=== PATIENT | male | born 1935 | race Caucasian/White ===

== ENCOUNTER → 2016-10-18 | Outpatient (CLI) | payer OTHER ==
[~2016-10-18] MED LIST: ACET-1256 PO; CALC500C3; ULT50X PO
== END | disposition home or self-care (01) ==
LOC: C.CTS 10:31
PROVIDERS: ATTEND Orthopaedic Surgery
DX: Z01.818 Encounter for other preprocedural examination (principal); M75.102 Unspecified rotator cuff tear or rupture of left shoulder, not specified as traumatic

== ENCOUNTER 2016-11-24 08:17 | Inpatient (IN) | payer OTHER ==
--- NOTE | 2016-10-18 10:13 | PAT Medication Instructions ---
Service Date October 18, 2016. Current Home Medication List Acetaminophen (Tylenol), 1,000 MG PO UD PRN for Pain Calcium Carbonate (Tums), UD PRN for HEARTBURN Medication Instructions For Your Scheduled Surgery - Take the following medications the morning of surgery with a sip of water: Acetaminophen (Tylenol), 1,000 MG PO UD PRN for Pain (if needed) - Take the following medications as scheduled the night before surgery: Acetaminophen (Tylenol), 1,000 MG PO UD PRN for Pain (if needed) Calcium Carbonate (Tums), UD PRN for HEARTBURN (if needed) If you have any questions please call us at [phone] or [phone] ( [place]) or [phone]
[2016-10-18 11:05] LABS: BASO % 0.8 %; BASO ABS # 0.04 K/uL (0-0.2); COMPLETE YES; EOS % 2.3 %; HEMATOCRIT 46.2 % (42-52); IG% 0.2 %; LYMPH % 39.6 %; LYMPH ABS # 2.04 K/uL (1.2-3.4); MEAN CELL VOLUME 83.8 fL (80-100); MEAN CORPUSCULAR HEMOGLOBIN 28.5 pg (25-34); MEAN PLATELET VOLUME 8.9 fL (7.4-10.4); NEUT % 49.1 %; PLATELET COUNT 252 K/uL (130-400); RED BLOOD COUNT 5.51 M/uL (4.7-6.1); WHITE BLOOD COUNT 5.15 K/uL (4.8-10.8)
--- NOTE | 2016-10-18 11:08 | DIAGNOSTIC IMAGING REPORT ---
CHEST PREADMISSION(PA/LAT) HISTORY: Preop. COMPARISON: Chest 05/13/2015. FINDINGS: There are low lung volumes. Slight prominence of interstitial markings is likely chronic. There are few linear densities the left lung base suggesting scarring or subsegmental atelectasis. This is also not significantly changed. No new focal lung consolidations to suggest pneumonia. No evidence for pulmonary edema. The heart is normal in size. No pleural effusions. No pneumothorax. Old left-sided rib fractures. IMPRESSION: No significant change compared to the prior study. No acute process. Electronically signed by: Vern Quiles M.D. 10/18/2016 11:07 AM Dictated Date/Time: 10/18/2016 11:05 AM
[2016-10-18 11:09] LABS: URINE APPEARANCE CLEAR (CLEAR); URINE BILIRUBIN NEG (NEG); URINE COLOR YELLOW; URINE NITRITE NEG (NEG); URINE SPECIFIC GRAVITY 1.021 (1.000-1.030); UROBILINOGEN NEG (NEG)
[2016-10-18 11:11] LABS: BUN/CREATININE RATIO 13.7 (10-20); CALCIUM 9.1 mg/dl (8.5-10.1); CREATININE 1.5 mg/dl (0.60-1.40); POTASSIUM 4.3 mmol/L (3.5-5.1)
[2016-10-18 11:17] LABS: MANUAL MICROSCOPIC REQUIRED? NO; REVIEW REQ? NO
[2016-10-18 11:25] LABS: PROTHROMBIN TIME (PATIENT) 10.4 SECONDS (9.0-12.0)
--- NOTE | 2016-11-23 14:03 | HISTORY & PHYSICAL EXAMINATION ---
DATE OF ADMISSION: 11/24/2016 CHIEF COMPLAINT: Cuff arthropathy of the left shoulder. HISTORY OF PRESENT ILLNESS: David is a very pleasant 81-year-old male who initially injured his shoulder while at work. MRI showed a large chronic rotator cuff tear. We attempted arthroscopic repair a little over a year ago, but were unable to repair the rotator cuff. Unfortunately, he has not done well postoperatively. He has continued to have a lot of pain in his shoulder and he has elected to proceed with a left reversed shoulder arthroplasty. PAST MEDICAL HISTORY: Denies. MEDICATIONS: Include Tylenol as needed for pain. ALLERGIES: None. PAST SURGICAL HISTORY: Significant for 2 lumbar surgeries and an attempt at left shoulder rotator cuff repair over a year ago. FAMILY HISTORY: Noncontributory. SOCIAL HISTORY: Denies any tobacco, alcohol or IV drug use. REVIEW OF SYSTEMS: He complains of left shoulder pain. All other pertinent review of systems is negative. PHYSICAL EXAMINATION: GENERAL: He is awake, alert and oriented x3. He is in no apparent distress. He is very pleasant. HEENT: Pupils are equal, round and reactive to light. Extraocular motions intact. Oral mucosa is pink and moist. HEART: Regular rate per radial pulse. LUNGS: Esperanza symmetrically bilaterally with no audible breath sounds. ABDOMEN: Soft, nontender, nondistended. MUSCULOSKELETAL: On physical examination, his left shoulder he has decreased active range of motion about 60 degrees of forward elevation. He has 3/5 muscle strength with external rotation. Unable to do full can testing due to his significant pain and crepitus in his shoulder. X-rays of the left shoulder do show some superior migration of the humeral head on the glenoid and moderate osteoarthritis. IMPRESSION: Cuff arthropathy of the left shoulder. PLAN: Will proceed with a Biomet comprehensive reversed left total shoulder arthroplasty. Postoperatively, he will be placed in an arm sling and kept overnight for postoperative medical management.
[~2016-11-24] VITALS: Ht 177.8 cm; Wt 94.6 kg
[2016-11-24] VITALS (7 sets, daily range): BP systolic 114–143; BP diastolic 68–85; PULSE 62–76; TEMP 36.3–36.7; O2SAT 94–98; Ht 177.8 cm; Wt 94.6 kg
[~2016-11-24 08:17] MED LIST changes: +ACETAMINOPHEN 500 MG TAB PO SCH; +CEFAZOLIN 2000 MG/60 ML D5W 60 ML IV SCH; +FAMOTIDINE 20 MG TAB PO SCH; +GABAPENTIN 300 MG CAP PO SCH; +LACTATED RINGER'S 1000ML 1,000 ML IV SCH; +LACTATED RINGER'S 1000ML IV SCH; +ROPIVACAINE 5MG/ML 30 ML 150 MG, BUPIVACAINE/EPINEPHR 0.5% MPF 30 ML, KETOROLAC TROMETH... INFIL SCH; -ULT50X PO
[2016-11-24] MEDS ORDERED: ROPIVACAINE 0.5% 5 MG/ML 30 ML VIAL ONE (08:22)
--- NOTE | 2016-11-24 08:48 | History & Physical Bridge Note ---
H&P Re-Evaluation Bridge Note: I have examined the patient, reviewed the History & Physical and in the interval since the performance of the History & Physical I have noted the following changes of clinical significance: No changes noted
[2016-11-24] MEDS ORDERED: PROPOFOL IV EMULSION 10 MG/ML 20 ML VIAL IV ONE (10:26)
[2016-11-24] MEDS ORDERED: ROCURONIUM BROMIDE 10 MG/ML 5 ML VIAL ONE (10:26)
[2016-11-24] MEDS ORDERED: LIDOCAINE HCL 2% 2 ML VIAL (20MG/ML) ONE (10:26)
[2016-11-24] MEDS ORDERED: SUCCINYLCHOLINE CHLORIDE 20 MG/ML 10 ML VIAL IV ONE (10:26)
[2016-11-24] MEDS ORDERED: NEOSTIGMINE METHYLSULFATE 5 MG/5 ML SYR ONE (10:26)
[2016-11-24] MEDS ORDERED: EpHEDrine SULFATE INJ 50 MG/ML AMP ONE (10:26)
[2016-11-24] MEDS ORDERED: PHENYLEPHRINE HCL INJ 10 MG/ML VIAL ONE (10:26)
[2016-11-24] MEDS ORDERED: ONDANSETRON INJ 2 MG/ML 2 ML VIAL ONE ×2 (10:26→14:32)
[2016-11-24] MEDS ORDERED: MIDAZOLAM HCL 1 MG/ML 2ML VIAL ONE ×2 (10:26→10:28)
[2016-11-24] MEDS ORDERED: DEXAMETHASONE SOD INJ 4 MG/ML VIAL ONE (10:26)
[2016-11-24] MEDS ORDERED: GLYCOPYRROLATE INJ 0.2 MG/ML VIAL ONE (10:26)
[2016-11-24] MEDS ORDERED: FENTANYL CITRATE INJ 50 MCG/1 ML 2 ML VIAL ONE (10:26)
[2016-11-24] MEDS ORDERED: ATROPINE SULFATE 0.1 MG/ML 5ML SYR IV PRN (11:30)
[2016-11-24] MEDS ORDERED: ONDANSETRON INJ 2 MG/ML 2 ML VIAL IV PRN ×2 (11:30→14:00)
[2016-11-24] MEDS ORDERED: FENTANYL CITRATE INJ 50 MCG/1 ML 2 ML VIAL IV PRN (11:30)
[2016-11-24] MEDS ORDERED: EpHEDrine SULFATE INJ 50 MG/ML AMP IV PRN (11:30)
[2016-11-24] MEDS: TRANEXAMIC ACID INJ 1,000 MG in SODIUM CHLORIDE 0.9% 100ML 100 ML IV SCH ×2 (11:39→13:35)
[2016-11-24] MEDS ORDERED: ORTHO JOINT ANESTHETIC ONE (11:56)
[2016-11-24] MEDS ORDERED: BACITRACIN 50000 UNIT VIAL ONE (11:56)
[2016-11-24] MEDS ORDERED: METHYLPREDNISOLONE ACETATE 80 MG/ML VIAL ONE (12:24)
[2016-11-24] MEDS ORDERED: BUPIVACAINE/EPINEPHRINE 0.25% 1:200,000 30 ML VIAL ONE (12:24)
--- NOTE | 2016-11-24 13:58 | [facility] Post Operative Brief Note ---
Immediate Operative Summary Operative Date Nov 24, 2016. Pre-Operative Diagnosis Cuff arthropathy of the left shoulder and Impingement Right Shoulder Post-Operative Diagnosis Cuff arthropathy of the left shoulder and Impingement Right Shoulder Procedure(s) Performed Left Reverse Total Shoulder Arthroplasty-Uncemented Surgeon Dr. Johnny Kowalski Solder [employer] Surgeon(s) Rajesh Fraser PA-C Estimated Blood Loss 300ml Findings as above Specimens A. Left Humeral Head Complication(s) None Disposition Recovery Room / PACU
[2016-11-24] MEDS ORDERED: TRAMADOL HCL 50 MG TAB PO PRN (14:00)
[2016-11-24] MEDS ORDERED: BISACODYL 10 MG SUPP PR PRN (14:00)
[2016-11-24] MEDS ORDERED: SOD PHOSPHATE/SOD BIPHOSPHATE ENEMA 132 ML BTL PR PRN (14:00)
[2016-11-24] MEDS ORDERED: MAGNESIUM HYDROXIDE SUSP 30 ML UDC PO PRN (14:00)
[2016-11-24] MEDS ORDERED: METOCLOPRAMIDE HCL INJ 5 MG/ML 2 ML VIAL IV PRN (14:00)
--- NOTE | 2016-11-24 14:50 | Anesthesiology Progress Note ---
Anesthesia Post Op Note Date & Time Nov 24, 2016 at 14:50 Vital Signs Pain Intensity: 0 Vital Signs Past 12 Hours Date Time Temp Pulse Resp B/P (MAP) Pulse Ox O2 Delivery O2 Flow Rate FiO2 11/24/16 14:40 62 12 129/72 97 Mask 10 11/24/16 14:30 65 12 136/79 99 Mask 10 11/24/16 14:21 36.0 75 20 136/77 98 Mask 10 11/24/16 08:46 36.7 62 18 114/77 96 Room Air Notes Mental Status: alert / awake / arousable, participated in evaluation Pt Amnestic to Procedure: Yes Nausea / Vomiting: adequately controlled Pain: adequately controlled Airway Patency, RR, SpO2: stable & adequate BP & HR: stable & adequate Hydration State: stable & adequate Anesthetic Complications: no major complications apparent left sided horners 2/2 interscalene block. otherwise no issues. awake and conversant. vss.
--- NOTE | 2016-11-24 15:07 | DIAGNOSTIC IMAGING REPORT ---
LEFT SHOULDER MIN 2 VIEWS ROUTINE CLINICAL HISTORY: Post shoulder surgery COMPARISON: Left shoulder radiographs August 07, [address] of the left shoulder October 18, 2016. FINDINGS: There are findings consistent with a reverse total left shoulder arthroplasty. The hardware is intact. There is no periprosthetic fracture or unexpected radiopaque foreign body. Surgical drain is in place. IMPRESSION: Expected findings following left shoulder arthroplasty. Electronically signed by: Benigno Knox M.D. 11/24/2016 3:06 PM Dictated Date/Time: 11/24/2016 3:05 PM
--- NOTE | 2016-11-24 15:26 | OPERATIVE REPORT ---
DATE OF OPERATION: 11/24/2016 PREOPERATIVE DIAGNOSES: Rotator cuff arthropathy of the left shoulder and impingement of the right shoulder. POSTOPERATIVE DIAGNOSES: Same. PROCEDURES: Left reverse total shoulder arthroplasty and subacromial injection of the right shoulder. SURGEON: Dr. Jalen Kowalski. MOLD SETTER: Bryant Fraser PA-C, whose assistance was necessary for positioning the arm and helping with instrumentation. ANESTHESIA: General with a left interscalene nerve block. COMPLICATIONS: None. CONDITION: Stable to PACU. INDICATIONS: David is a pleasant 81-year-old male who originally injured his shoulder while at work. He underwent arthroscopy over a year ago and he had an irreparable massive rotator cuff tear. After failing extensive conservative treatment, he elected to undergo a reverse shoulder arthroplasty. DESCRIPTION OF PROCEDURE: On 11/24/2016, he arrived at [facility] for the above procedure. He was seen in the preoperative holding area and the operative extremity was identified and signed. He has given a preoperative antibiotic, taken back to the operating room, laid on the table in supine position and put under general anesthesia. The left shoulder was then prepped and draped in sterile fashion. Time-out was done and the patient and operative extremity was properly identified. A deltopectoral approach was utilized. Dissection was taken down through the fascia and through the deltopectoral interval. The anterior shoulder was exposed. The subscapularis was tenotomized off the lesser tuberosity and the humeral head was dislocated. Sequential reaming up to a size 12 reamer was done. Off that reamer, a proximal humeral resection guide was placed and the proximal humerus was resected at 135 degrees of inclination and 20 degrees of retroversion. The glenoid was then exposed. Time was spent doing a complete circumferential capsular and labral release. The signature guide was snapped on to the anterior aspect of the glenoid and the guidepin was placed in the reverse shoulder arthroplasty slot. The 25-mm mini baseplate was then reamed and the central boss was drilled. The final 25-mm mini baseplate was then impacted into place. A 45-mm central screw was placed followed by superior and inferior peripheral locking screws. A 36-mm standard eccentric glenosphere was then impacted into place. The proximal humerus was once again exposed. Sequential broaching up to a size 12 broach was done. A standard humeral tray was trialed and I was able to get the shoulder through a full range of motion and felt to be sized appropriately. The broach was removed. The final size 12 mini stem was then impacted into place. The standard humeral bearing was snapped onto the humeral tray and the ring lock mechanism was engaged. The humeral tray was then placed on the humeral stem and the shoulder was reduced. The entire wound was irrigated with 3 liters of normal saline solution with bacitracin. Surrounding soft tissues were injected with 100 mL an orthopedic pain control cocktail. The subscapularis was then tenodesed back to the lesser tuberosity with transosseous FiberWire sutures and [id number] sutures. A drain was placed. Skin was closed with 2-0 Vicryl, a running 3-0 V-Loc suture and a Prineo dressing was placed. He was then placed in an arm sling. Attention was then turned to the contralateral shoulder, where he was given a subacromial injection of 80 mg of Depo-Medrol and 5 mL of Marcaine. He tolerated that portion of the procedure well. A Band-Aid was placed. He was then extubated, transferred to a [facility] and taken to the postanesthesia care unit in stable condition. He tolerated the procedure well. IMPLANTS USED: I used a Biomet comprehensive reverse shoulder arthroplasty system with a 25-mm mini baseplate, a 36-mm standard eccentric glenosphere, a 12-mm mini stem, a standard humeral tray and standard humeral bearing. No cement was used during the case. I attest to the content of the Intraoperative Record and any orders documented therein. Any exceptions are noted below. JAMES
[2016-11-24] MEDS: POTASSIUM CHLORIDE INJ 10 MEQ in SODIUM CHLORIDE 0.9% 1000ML 1,000 ML IV SCH (16:23)
[2016-11-24] MEDS: CEFAZOLIN IV 2,000 MG in DEXTROSE 5% 50ML 50 ML IV SCH (20:00)
[2016-11-24] MEDS: KETOROLAC TROMETHAMINE 15 MG/ML VIAL IV. SCH (20:01)
[2016-11-24] MEDS: DOCUSATE SODIUM 100 MG CAP PO SCH (21:00)
[2016-11-24] MEDS ORDERED: SENNA 8.6 MG TAB PO SCH (21:00)
[2016-11-24] MEDS: ACETAMINOPHEN IV 1,000 MG in EMPTY BAG 0 ML IV SCH (21:04)
[2016-11-25] MEDS: KETOROLAC TROMETHAMINE 15 MG/ML VIAL IV. SCH ×2 (02:45→07:31)
[2016-11-25] MEDS: POTASSIUM CHLORIDE INJ 10 MEQ in SODIUM CHLORIDE 0.9% 1000ML 1,000 ML IV SCH (02:45)
[2016-11-25 03:01] VITALS: BP 113/63; PULSE 66; TEMP 36.5; O2SAT 94
[2016-11-25] MEDS: CEFAZOLIN IV 2,000 MG in DEXTROSE 5% 50ML 50 ML IV SCH (04:56)
[2016-11-25] MEDS: ACETAMINOPHEN IV 1,000 MG in EMPTY BAG 0 ML IV SCH (05:34)
--- NOTE | 2016-11-25 05:52 | Discharge Instructions ---
Discharge Instructions Date of Service Nov 25, 2016. Admission Reason for Admission: Left Shoulder Full Thickness Rotator Cuff Tear Discharge Discharge Diagnosis / Problem: Left Reverse Shoulder Discharge Goals Goal(s): Decrease discomfort, Improve function Activity Recommendations Activity Limitations: as noted below Shower/Bathe: may shower/bathe in 3 days . Instructions / Follow-Up Instructions / Follow-Up Activity and Therapy Recommendations: * Wear your sling for 3 weeks, unless otherwise instructed. You may remove your sling to shower and to dress, but otherwise, you should be in your sling at all times, including while sleeping * The shoulder replacement is very stable and you can use your hand while in the sling * Physical Therapy should start about 3-5 days from your day of surgery. Therapy will last about 8-12 weeks * You were shown a series of exercises in the hospital. Do these exercises daily including the exercises you were shown in physical therapy. Medications: * Narcotic You will likely be sent home from the hospital with a prescription for the narcotic pain medication that worked best throughout your stay. * Other medications may be prescribed for specific circumstances. If you have any questions, please call the office at . * Resume previous home medications unless otherwise instructed Dressing Care: You will likely have a Prineo dressing covering your incision. This looks like a glued on clear mesh dressing. Do not remove this dressing until you follow- up in my office in 2-3 weeks. Its pretty hard to peel it off. You may leave the Prineo dressing uncovered or cover it if it is draining a little bit. No further dressing care is required Showering: You may shower 3 days from the day of surgery. Leave the Prineo dressing intact and let the soapy shower water run over it. Do not scrub or soak the dressing or the incision. Things To Watch For: * Drainage from the incision site that occurs more than one week after your surgery. * Increased redness at the incision site. * Fever above 102 degrees Fahrenheit. * Unusual chest pain or shortness of breath. * Call [facility] at with any of the above problems Follow-Up Visit: Follow-up with Dr. Kowalski 2-3 weeks after your day of surgery. An appointment was probably scheduled when you signed-up for surgery in the office. If you have any questions call Office Instructions: More detailed instructions as well as Frequently Asked Questions were provided in a folder by our office when you signed-up for surgery. Please review these instructions when you get home. If you have any further questions or concerns, please feel free to call the office at [phone] Current Hospital Diet Patient's current hospital diet: Regular Diet Discharge Diet Recommended Diet: Regular Diet Procedures Procedures Performed: Left Reverse Total Shoulder Arthroplasty-Uncemented Pending Studies Studies pending at discharge: no Medical Emergencies . Who to Call and When: Medical Emergencies: If at any time you feel your situation is an emergency, please call 911 immediately. . Non-Emergent Contact Non-Emergency issues call your: Surgeon Call Non-Emergent contact if: wound has increased drainage, wound has increased redness . "Provider Documentation" section prepared by Jalen Kowalski. . VTE Core Measure Inpt VTE Proph given/why not?: Treatment not indicated
[2016-11-25] MEDS ORDERED: ULT50X PO (06:12)
[2016-11-25 06:23] LABS: HEMATOCRIT 40.5 % (42-52); MEAN CELL VOLUME 82.8 fL (80-100); MEAN CORPUSCULAR HEMOGLOBIN 28.6 pg (25-34); MEAN CORPUSCULAR HGB CONC 34.6 g/dl (32-36); MEAN PLATELET VOLUME 8.9 fL (7.4-10.4); PLATELET COUNT 213 K/uL (130-400); RED BLOOD COUNT 4.89 M/uL (4.7-6.1); WHITE BLOOD COUNT 10.99 K/uL (4.8-10.8)
--- NOTE | 2016-11-25 06:23 | PROGRESS NOTE ---
DATE: 11/25/2016 CHIEF COMPLAINT: Status post left reverse shoulder arthroplasty, postop day #1. PROGRESS: David was seen and examined at bedside today. Overall, he is doing very well. He has very little pain in the left shoulder. He has been up and ambulating to the bathroom and has no complaints. PHYSICAL EXAMINATION: LEFT SHOULDER: The dressing is clean and dry and the drain is to suction. His radial, median and ulnar nerves were checked and intact at his wrist. His axillary nerve was not checked yet. LABORATORY DATA: Still pending. Vital signs are all stable on room air. X-rays, postoperatively, of the left shoulder show the prosthesis to be in anatomic alignment without any evidence of fracture, dislocation or loosening. IMPRESSION: Status post left reverse shoulder arthroplasty, postop day #1. PLAN: At this point, he is doing very well. He will be seen by physical therapy for hand, wrist, elbow and pendulum exercises. The nursing staff can change the dressing, pull the drain and he would be discharged home later this morning on oral pain medications.
--- NOTE | 2016-11-25 06:29 | DISCHARGE SUMMARY ---
DISCHARGE DIAGNOSIS: Rotator cuff arthropathy of the left shoulder. PROCEDURE: Left reverse shoulder arthroplasty on 11/24/[address] Jalen Kowalski. DISCHARGE INSTRUCTIONS: 1. Tramadol 50 mg every 4 hours as needed for pain. 2. Tylenol as needed for pain. 3. Tums as needed for heartburn. 4. Left arm sling for 3 weeks. 5. Follow up with Dr. Kowalski in 2 weeks. 6. Call the office of Dr. Kowalski with any questions or concerns. HOSPITAL COURSE: David is a pleasant 81-year-old male who has been dealing with chronic left shoulder pain. He had left shoulder arthroscopy over a year ago for an unrepairable rotator cuff tear. Unfortunately, he has continued to have a lot of pain. He elected to proceed with a left reverse shoulder arthroplasty. On 11/24/2016, he arrived at [facility] and underwent a left reverse shoulder replacement without complications. He had a general anesthetic and a left interscalene nerve block. Postoperatively, he was discharged to general orthopedic floors. His hospital course was uneventful. On postop day #1, he was not having much pain at all in his shoulder. He was able to participate well with physical therapy. The nursing staff changed the dressing and pulled the drain and he was subsequently discharged to home on oral pain medications and the above instructions.
[2016-11-25 07:05] LABS: BUN/CREATININE RATIO 12.3 (10-20); CALCIUM 7.9 mg/dl (8.5-10.1); CREATININE 1.3 mg/dl (0.60-1.40); POTASSIUM 4.7 mmol/L (3.5-5.1)
[2016-11-25 07:47] VITALS: BP 123/62; PULSE 68; TEMP 36.9; O2SAT 95
[2016-11-25] MEDS ORDERED: PNEUMOCOCCAL POLYSACCHARIDES 25 MCG/0.5 ML VIAL/SYR IM. ONE (08:00)
[2016-11-25] MEDS ORDERED: PNEUMOCOCCAL ADMINISTRATION CHARGE ONE (08:00)
[2016-11-25] MEDS: DOCUSATE SODIUM 100 MG CAP PO SCH (08:45)
[2016-11-25] MEDS ORDERED: PANTOprazole SOD 40 MG TAB PO SCH (09:00)
[2016-11-25 09:27] VITALS: O2SAT 97
[2016-11-25 10:16] VITALS: BP 123/62; PULSE 68; TEMP 36.9; O2SAT 97
== END 2016-11-25 11:35 | disposition home or self-care (01) | DRG 483 ==
LOC: C.ACU 08:17 → C.3E 14:13 → ENRESERV 14:47
PROVIDERS: ADMIT Orthopaedic Surgery; ATTEND Orthopaedic Surgery
PROC: 3E0U33Z Introduction of Anti-inflammatory into Joints, Percutaneous Approach (ICD-10-PCS; principal; 2016-11-24 11:00)
PROC: 0RRK0J6 Replacement of Left Shoulder Joint with Synthetic Substitute, Humeral Surface, Open Approach (ICD-10-PCS; principal; 2016-11-24 11:00)
DX: M12.812 Other specific arthropathies, not elsewhere classified, left shoulder (principal); M75.41 Impingement syndrome of right shoulder